=== PATIENT | male | born 1965 | race Caucasian/White ===

== ENCOUNTER 2018-01-17 03:01 | Emergency (ER) | payer OTHER ==
[2018-01-17 04:42] LABS: ADD MAN DIFF? NO; BASOPHILS % 0.6 % (0.0-2.0); EOSINOPHILS # 0.7 10^3/ul (0.0-0.5); HEMATOCRIT 41.5 % (42.0-52.0); HEMOGLOBIN 13.4 g/dl (14.0-18.0); LYMPHOCYTES % 28.1 % (15.0-51.0); MEAN CORPUSCULAR HEMOGLOBIN 27.9 pg (29.0-33.0); MEAN CORPUSCULAR HGB CONC 32.3 g/dl (32.0-37.0); MEAN CORPUSCULAR VOLUME 86.5 fl (82.0-101.0); MEAN PLATELET VOLUME 12.4 fl (7.4-10.4); MONOCYTE # 0.7 10^3/ul (0.3-0.9); MONOCYTES % 9.5 % (0.0-11.0); NEUTROPHIL # 3.6 10^3/ul (1.6-7.5); NEUTROPHILS % 51.5 % (39.0-77.0); PLATELET COUNT 131 10^3/UL (140-415); POSITIVE DIFF @See below; RED CELL DISTRIBUTION WIDTH 13.2 % (11.5-14.5)
[2018-01-17 04:47] LABS: INR 0.87; PARTIAL THROMBOPLASTIN TIME 20.3 Sec (25.0-35.0); PROTIME 11.9 Sec (11.9-14.9); PT RATIO 0.9
[2018-01-17 04:49] LABS: ANION GAP 14 (8-16); BLOOD UREA NITROGEN 16 mg/dl (7-20); CARBON DIOXIDE 22 mmol/L (21-31); CHLORIDE 109 mmol/L (97-110); CREATININE 0.73 mg/dl (0.61-1.24); GLUCOSE 172 mg/dl (70-220); MAGNESIUM 2.2 mg/dl (1.7-2.5); POTASSIUM 3.7 mmol/L (3.5-5.1); SODIUM 141 mmol/L (135-144)
[2018-01-17 05:01] LABS: TROPONIN-I < 0.010 ng/ml (0.000-0.120)
== END 2018-01-17 05:54 | disposition home or self-care (01) ==
LOC: E/R 03:01
DX: I48.91 Unspecified atrial fibrillation (principal); D69.6 Thrombocytopenia, unspecified; D64.9 Anemia, unspecified; J44.9 Chronic obstructive pulmonary disease, unspecified; E03.9 Hypothyroidism, unspecified
CPT/HCPCS: 36415; 71045; 80048; 83735; 84484; 85025; 85610; 85730; 93005; 99285-25

== ENCOUNTER 2018-06-17 22:23 | Emergency (ER) | payer SELFPAY, OTHER | END 2018-06-17 23:09 | disposition left against medical advice (07) | LOC: E/R 22:23 | DX: Z53.21 Procedure and treatment not carried out due to patient leaving prior to being seen by health care provider (principal) | CPT/HCPCS: 93005 ==

== ENCOUNTER 2018-07-08 00:42 | Observation (INO) | payer OTHER ==
[2018-07-08 02:11] LABS: ADD MAN DIFF? NO
[2018-07-08 02:12] LABS: BASOPHIL # 0.1 10^3/ul (0.0-0.1); BASOPHILS % 0.6 % (0.0-2.0); EOSINOPHILS # 0.5 10^3/ul (0.0-0.5); EOSINOPHILS % 5.8 % (0.0-7.0); HEMATOCRIT 38.5 % (42.0-52.0); HEMOGLOBIN 12.6 g/dl (14.0-18.0); LYMPHOCYTES # 0.8 10^3/ul (0.8-2.9); LYMPHOCYTES % 9.9 % (15.0-51.0); MEAN CORPUSCULAR HEMOGLOBIN 28.4 pg (29.0-33.0); MEAN CORPUSCULAR HGB CONC 32.7 g/dl (32.0-37.0); MEAN CORPUSCULAR VOLUME 86.7 fl (82.0-101.0); MEAN PLATELET VOLUME 11.3 fl (7.4-10.4); MONOCYTE # 0.6 10^3/ul (0.3-0.9); NEUTROPHIL # 6.1 10^3/ul (1.6-7.5); NEUTROPHILS % 76.3 % (39.0-77.0); PLATELET COUNT 146 10^3/UL (140-415); RED BLOOD COUNT 4.44 10^6/ul (4.70-6.10); RED CELL DISTRIBUTION WIDTH 12.6 % (11.5-14.5)
[2018-07-08 02:37] LABS: ALANINE AMINOTRANSFERASE 18 IU/L (13-69); ALBUMIN/GLOBULIN RATIO 1.25; ALKALINE PHOSPHATASE 93 IU/L (42-121); ANION GAP 8 (5-13); ASPARTATE AMINO TRANSFERASE 26 IU/L (15-46); BILIRUBIN,INDIRECT 0.1 mg/dl (0-1.1); BILIRUBIN,TOTAL 0.1 mg/dl (0.2-1.3); BLOOD UREA NITROGEN 17 mg/dl (7-20); CALCIUM 9.3 mg/dl (8.4-10.2); CARBON DIOXIDE 28 mmol/L (21-31); CHLORIDE 102 mmol/L (97-110); Estimated GFR > 60 mL/min (>60); GLUCOSE 91 mg/dl (70-220); SODIUM 138 mmol/L (135-144); TOTAL PROTEIN 7.2 g/dl (6.1-8.1)
[2018-07-08 02:48] LABS: B-TYPE NATRIURETIC PEPTIDE 318 PG/ML (0-125); TROPONIN-I < 0.012 ng/ml (0.000-0.120)
[2018-07-08] MEDS: ONDANSETRON 4 MG INJ IV (03:30)
[2018-07-08] MEDS ORDERED: LORAZEPAM 2 MG INJ IV ×2 (04:30→12:30)
[2018-07-08] MEDS ORDERED: NACL 0.9% 3 ML SYG IV (04:30)
[2018-07-08] MEDS ORDERED: BISACODYL (EC) 5 MG TAB PO (04:30)
[2018-07-08] MEDS ORDERED: NITROGLYCERIN (SL) 0.4 MG TAB SL (04:30)
[2018-07-08] MEDS ORDERED: DOCUSATE SODIUM 100 MG CAP PO (04:30)
[2018-07-08] MEDS ORDERED: ONDANSETRON 4 MG INJ IV (04:30)
[2018-07-08] MEDS ORDERED: morphine 2 MG INJ IV (04:30)
[2018-07-08] MEDS: ASPIRIN 325 MG TAB PO (04:44)
[2018-07-08] MEDS: ACETAMINOPHEN 325 MG TAB PO (04:45)
[2018-07-08 06:55] LABS: HEMOGLOBIN A1C 5.5 % (0-5.9)
[2018-07-08 07:15] LABS: CREATINE KINASE 82 IU/L (23-200)
[2018-07-08 07:23] LABS: CK INDEX 0.5; CK-MB 0.38 ng/ml (0.0-2.4); TROPONIN-I < 0.012 ng/ml (0.000-0.120)
[2018-07-08 07:45] LABS: CHOL/HDL RATIO 4.2 RATIO; CHOLESTEROL 179 mg/dl (100-200); HDL CHOLESTEROL 42 mg/dl (28-71); LDL CHOLESTEROL,CALCULATED 115 mg/dl; TRIGLYCERIDES 111 mg/dl (0-149)
[2018-07-08 07:59] LABS: THYROID STIMULATING HORMONE 0.036 MIU/L (0.465-4.680)
[2018-07-08 08:00] LABS: MAGNESIUM 1.9 mg/dl (1.7-2.5)
[2018-07-08] MEDS: LEVOTHYROXINE 137 MCG TAB PO (08:36)
[2018-07-08] MEDS: HYDROCORTISONE 20 MG TAB PO (08:36)
[2018-07-08] MEDS: ASPIRIN 81 MG TAB PO (08:36)
[2018-07-08 08:49] LABS: ETHANOL < 10.0 mg/dl (0-0)
[2018-07-08 10:46] LABS: AMPHETAMINE/METHAMPHETAMINE Negative (NEGATIVE); BARBITURATES Negative (NEGATIVE); BENZODIAZEPINES Negative (NEGATIVE); CANNABINOIDS Negative (NEGATIVE); COCAINE Negative (NEGATIVE)
[2018-07-08 11:12] LABS: OPIATES Positive (NEGATIVE)
[2018-07-08] MEDS: SOD CHLORIDE 0.9% 1,000 ML IV (11:21)
[2018-07-08] MEDS ORDERED: DICYCLOMINE 10 MG CAP PO (11:30)
[2018-07-08 14:54] LABS: FREE T4 (FREE THYROXINE) 0.75 ng/dl (0.64-1.79)
[2018-07-08 15:04] LABS: CREATINE KINASE 87 IU/L (23-200)
[2018-07-08 15:16] LABS: CK INDEX 0.5; CK-MB 0.45 ng/ml (0.0-2.4); TROPONIN-I < 0.012 ng/ml (0.000-0.120)
[2018-07-08 18:45] LABS: T4 (THYROXINE) 4.9 ug/dl (5.5-11.0)
[2018-07-08 18:45] LABS: FREE T3 3.11 pg/ml (2.77-5.27)
[2018-07-09] MEDS ORDERED: INFLUENZA VIRUS VACCINE 0.5 ML (DISPENSING) IM* (10:00)
== END 2018-07-08 15:08 | disposition home or self-care (01) ==
LOC: 6WM 04:10 → E/R 00:42 → 6WM 03:27
DX: R07.89 Other chest pain (principal); E27.40 Unspecified adrenocortical insufficiency; E03.9 Hypothyroidism, unspecified; F19.10 Other psychoactive substance abuse, uncomplicated; F11.10 Opioid abuse, uncomplicated
CPT/HCPCS: 36415; 71045; 80053; 80061; 80307; 82550; 82553; 83036; 83735; 83880; 84436; 84439; 84443; 84481; 84484; 85025; 90686; 93005; 93306; 99217; 99285-25; G0378